=== PATIENT | male | born 1980 | race Caucasian/White ===

== ENCOUNTER 2016-08-16 21:29 | Emergency (ER) | payer OTHER ==
[~2016-08-16] VITALS: Ht 180.3 cm; Wt 141.7 kg
[2016-08-16] MEDS ORDERED: LOSARTAN POTASS50 MG PO (22:22)
[2016-08-16] MEDS ORDERED: ATORVASTATIN CA40 MG PO (22:22)
[2016-08-16 23:35] VITALS: BP 158/92
[2016-08-18 12:17] LABS: TREPONEMA ANTIBODY NEGATIVE (NEGATIVE)
[2016-08-19 13:54] LABS: CHLAMYDIA TRACHOMATIS NEGATIVE; NEISSERIA GONORRHOEAE NEGATIVE
== END 2016-08-16 23:49 | disposition home or self-care (01) ==
LOC: EME 21:29
PROVIDERS: Physician Assistant Medical
DX: A53.9 Syphilis, unspecified (principal)
CPT/HCPCS: 86780; 87070; 87075; 87077; 87147; 87186; 87205; 87254; 87491; 87591; 99281; 99284; J0561